=== PATIENT | female | born 1980 | race Caucasian/White ===

== ENCOUNTER 2020-08-16 18:23 | Emergency (ER) | payer MEDICAID ==
[~2020-08-16] VITALS: Ht 154.9 cm; Wt 61.4 kg
--- NOTE | 2020-08-16 18:42 | NUR ---
VP CLIENT SERVICES NOTE: PT SYMPTOMOLOGY AND TIMELINE REVIEWED WITH MICAH EARL, PER MD CODE NEURO NOT INDICATED
--- NOTE | 2020-08-16 18:51 | NUR ---
PT CO CHEST DISCOMFORT, SOB, NAUSEA, AND DIZZY. PT ALSO HAS NUMBESS IN THE FRONT OF HER HEAD. PT STATED SHE USED METH TODAY. PT HAS A HX OF ENDOCARDITIS. PT DENIES VOMIING AT THIS TIME.
--- NOTE | 2020-08-16 19:04 | NUR ---
PT REPORT GIVEN TO [place] COOLEY
--- NOTE | 2020-08-16 19:15 | NUR ---
REPORT FROM SORIN DELAROSA. MEDIC STUDENT AT BEDSIDE TO START PIV.
--- NOTE | 2020-08-16 19:29 | NUR ---
MEDIC STUDENT UNABLE TO PLACE PIV. XRAY AND LAB AT BEDSIDE. TITO RN TO ASSIST WITH PIV PLACEMENT.
[2020-08-16] MEDS ORDERED: SODIUM CHLORIDE FLUSH 10ML SYR IVF ONE (19:30)
[2020-08-16] MEDS ORDERED: ENALAPRILAT 1.25 MG/ML, 2ML IV ONE (19:30)
--- NOTE | 2020-08-16 19:45 | NUR ---
IV ACCESS ATTEMPTED X2; UNSUCCESSFUL
[2020-08-16 19:49] LABS: ALBUMIN 3.9 g/dL (3.4-5.0); ANION GAP 5 mmol/L (5-15); CALCIUM 9.4 mg/dL (8.5-10.1); CHLORIDE 106 mmol/L (98-107); CREATININE 0.76 mg/dL (0.55-1.02)
[2020-08-16 19:51] LABS: BASOPHILS % (AUTO) 1 % (0-1); EOSINOPHILS % (AUTO) 1 % (1-7); LYMPHOCYTES % (AUTO) 35 % (22-44); MEAN CORPUSCULAR HEMOGLOBIN 30.3 pg (27.0-34.8); MEAN PLATELET VOLUME 7.2 fL (7.4-10.4); MONOCYTES % (AUTO) 7 % (2-9); NEUTROPHILS % (AUTO) 56 % (42-75); PLATELET COUNT 327 x10^3/uL (130-400); RED BLOOD COUNT 4.78 x10^6/uL (3.82-5.3); RED CELL DISTRIBUTION WIDTH 13.1 % (9.6-15.2)
[2020-08-16 19:52] LABS: TROPONIN I < 0.015 ng/mL (0.000-0.045)
[2020-08-16 19:53] LABS: MD NO
--- NOTE | 2020-08-16 20:10 | NUR ---
CHARLES DELAROSA TO ATTEMPT US PIV
--- NOTE | 2020-08-16 20:57 | NUR ---
MED REQUESTED FROM PHARMACY BUT PHARMACY DOES NOT HAVE VAS[facility]EMD Mayra CHANGED ORDER TO [facility].
[2020-08-16] MEDS ORDERED: hydrALAzine 20 MG/ML, 1ML IV ONE ×2 (21:00→22:00)
[2020-08-16] MEDS ORDERED: hydrALAzine 20 MG/ML, 1ML ONE ×2 (21:00→21:39)
[2020-08-16 21:48] VITALS: BP 185/98
--- NOTE | 2020-08-16 22:08 | NUR ---
PATIENT GIVEN DISCHARGE PAPERWORK AND PRESCRIPTIONS, ALL QUESTIONS ANSWERED, IV REMOVED WITH TIP INTACT, ALL PATIENT BELONGINGS GATHERED AND TAKEN WITH PATIENT. PATIENT AMBULATORY WITH STEADY GAIT FROM ED WITH SIGNIFICANT OTHER AT SIDE.
== END 2020-08-16 22:09 | disposition home or self-care (01) ==
LOC: ED 21:10
DX: I10 Essential (primary) hypertension (principal); R07.89 Other chest pain; R42 Dizziness and giddiness; R51.9 Headache, unspecified; R94.31 Abnormal electrocardiogram [ECG] [EKG]; F17.200 Nicotine dependence, unspecified, uncomplicated
CPT/HCPCS: 36415; 71045; 80048; 82040; 84484; 85025; 93005; 96374; 96376; 99285; J0360

== ENCOUNTER 2020-09-11 15:30 | Emergency (ER) | payer MEDICAID ==
[~2020-09-11] VITALS: Ht 154.9 cm; Wt 62.1 kg
[2020-09-11 15:45] VITALS: BP 182/98
--- NOTE | 2020-09-11 18:35 | NUR ---
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
--- NOTE | 2020-09-11 19:19 | NUR ---
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
--- NOTE | 2020-09-11 19:37 | NUR ---
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
== END 2020-09-11 19:41 | disposition left against medical advice (07) ==
LOC: ED 16:00
DX: M25.552 Pain in left hip (principal); M25.561 Pain in right knee; R94.31 Abnormal electrocardiogram [ECG] [EKG]; R50.9 Fever, unspecified; Z53.21 Procedure and treatment not carried out due to patient leaving prior to being seen by health care provider
CPT/HCPCS: 93005